=== PATIENT | female | born 1980 | race Caucasian/White ===

== ENCOUNTER 2018-02-28 10:03 | Day surgery (SDC) | payer MEDICAID ==
[~2018-02-28 10:03] MED LIST: MIDAZOLAM 1 MG/ML 2 ML INJ
[2018-02-28] MEDS ORDERED: KETOROLAC 30 MG INJ IV (10:58)
[2018-02-28 11:12] LABS: ADD MAN DIFF? NO
[2018-02-28 11:15] LABS: WHITE BLOOD COUNT 9.2 10^3/ul (4.8-10.8)
[2018-02-28 11:15] LABS: BASOPHIL # 0.1 10^3/ul (0.0-0.1); BASOPHILS % 0.5 % (0.0-2.0); EOSINOPHILS # 0.5 10^3/ul (0.0-0.5); HEMATOCRIT 37.1 % (37.0-47.0); HEMOGLOBIN 11.9 g/dl (12.0-16.0); LYMPHOCYTES # 2.2 10^3/ul (0.8-2.9); LYMPHOCYTES % 23.6 % (15.0-51.0); MEAN CORPUSCULAR HEMOGLOBIN 28.1 pg (29.0-33.0); MEAN CORPUSCULAR HGB CONC 32.1 g/dl (32.0-37.0); MEAN CORPUSCULAR VOLUME 87.7 fl (82.0-101.0); MEAN PLATELET VOLUME 10.7 fl (7.4-10.4); MONOCYTE # 0.6 10^3/ul (0.3-0.9); MONOCYTES % 6.3 % (0.0-11.0); NEUTROPHIL # 5.9 10^3/ul (1.6-7.5); NEUTROPHILS % 64.3 % (39.0-77.0); PLATELET COUNT 281 10^3/UL (140-415); RED BLOOD COUNT 4.23 10^6/ul (4.20-5.40); RED CELL DISTRIBUTION WIDTH 13.9 % (11.5-14.5)
[2018-02-28] MEDS: ACETAMINOPHEN 500 MG TAB PO (11:21)
[2018-02-28] MEDS: ONDANSETRON 4 MG INJ IV ×2 (11:21→17:16)
[2018-02-28 11:34] LABS: ALANINE AMINOTRANSFERASE 17 IU/L (13-69); ALBUMIN 4.1 g/dl (3.3-4.9); ALBUMIN/GLOBULIN RATIO 1.24; ALKALINE PHOSPHATASE 54 IU/L (42-121); ANION GAP 15 (8-16); ASPARTATE AMINO TRANSFERASE 19 IU/L (15-46); BILIRUBIN,INDIRECT 0.2 mg/dl (0-1.1); BILIRUBIN,TOTAL 0.2 mg/dl (0.2-1.3); BLOOD UREA NITROGEN 9 mg/dl (7-20); CALCIUM 8.8 mg/dl (8.4-10.2); CARBON DIOXIDE 27 mmol/L (21-31); CHLORIDE 103 mmol/L (97-110); CREATININE 0.55 mg/dl (0.44-1.00); GLUCOSE 94 mg/dl (70-220); LIPASE 102 U/L (23-300); POTASSIUM 3.7 mmol/L (3.5-5.1); SODIUM 141 mmol/L (135-144); TOTAL PROTEIN 7.4 g/dl (6.1-8.1)
[2018-02-28 11:55] LABS: ADD UMIC YES; UR ASCORBIC ACID NEGATIVE (NEGATIVE); UR BILIRUBIN (Dip) NEGATIVE (NEGATIVE); UR BLOOD (Dip) 3+ mg/dL (NEGATIVE); UR CLARITY SLIGHTLY CLOUDY (CLEAR); UR COLOR YELLOW (YELLOW); UR GLUCOSE (Dip) NEGATIVE (NEGATIVE); UR KETONES (Dip) NEGATIVE (NEGATIVE); UR LEUKOCYTE ESTERASE (Dip) NEGATIVE Leu/ul (NEGATIVE); UR NITRITE (Dip) NEGATIVE (NEGATIVE); UR RBC > 182 /HPF (0-5); UR SPECIFIC GRAVITY (Dip) 1.014 (1.003-1.030); UR SQUAMOUS EPITHELIAL CELL FEW /HPF (FEW); UR TOTAL PROTEIN (Dip) NEGATIVE (NEGATIVE); UR UROBILINOGEN (Dip) NEGATIVE (NEGATIVE); UR WBC 5 /HPF (0-5)
[2018-02-28] MEDS ORDERED: LIDOCAINE 1%/EPI 30 ML INJ (14:58)
[2018-02-28] MEDS ORDERED: SUCCINYLCHOLINE CHLORIDE 100 MG/5 ML SYG IV (15:13)
[2018-02-28] MEDS ORDERED: PROPOFOL 20 ML (15:13)
[2018-02-28] MEDS ORDERED: ROCURONIUM 50 MG INJ (15:13)
[2018-02-28] MEDS ORDERED: ROPIVACAINE 0.5 % 30 ML VIAL (15:17)
[2018-02-28] MEDS ORDERED: ONDANSETRON 4 MG INJ (15:17)
[2018-02-28] MEDS ORDERED: METOCLOPRAMIDE 10 MG INJ (15:17)
[2018-02-28] MEDS ORDERED: MIDAZOLAM 1 MG/ML 2 ML INJ (15:19)
[2018-02-28] MEDS ORDERED: CEFAZOLIN 1 GM INJ (15:39)
[2018-02-28] MEDS ORDERED: NEOSTIGMINE 3 MG/3 ML SYRINGE (16:42)
[2018-02-28] MEDS ORDERED: GLYCOPYRROLATE 0.4 MG INJ (16:42)
[2018-02-28] MEDS ORDERED: KETOROLAC 30 MG INJ (16:42)
[2018-02-28] MEDS ORDERED: MEPERIDINE 25 MG INJ (17:01)
[2018-02-28] MEDS: HYDROmorphONE (0.2 MG/ML) 10ML SYG IV (17:16)
[2018-02-28] MEDS: MEPERIDINE 25 MG INJ IV (17:16)
[2018-02-28] MEDS ORDERED: HYDROmorphONE (0.2 MG/ML) 10ML SYG IV (17:30)
[2018-02-28] MEDS ORDERED: morphine (1 MG/ML) 10ML SYRINGE IV ×2 (17:30)
== END 2018-02-28 18:46 | disposition home or self-care (01) ==
LOC: FTE 10:03 → SDS 14:40
DX: O00.102 Left tubal pregnancy without intrauterine pregnancy (principal)
CPT/HCPCS: 59151; 76801; 76817; 80053; 81001; 81025; 83690; 84702; 85025; 86900; 86901; 88305; 99285-25